=== PATIENT | female | born 1990 | race Caucasian/White ===

== ENCOUNTER 2017-05-27 21:09 | Emergency (ER) | payer BC, OTHER ==
[2017-05-27 21:29] VITALS: O2SAT 100
--- NOTE | 2017-05-27 22:11 | ED.PDOC ---
History of Present Illness - General Chief Complaint: [employer] Problem Stated Complaint: breast pain,post delivery,constipation Time Seen by Provider: 05/27/17 22:03 Source: patient Exam Limitations: no limitations - History of Present Illness Initial Comments: Shagufta Miles 26 y/o female 3 days post had uneventful vaginal delivery stated that both breast is engorged and had been constipated Timing/Duration: other - 2 days Severity: moderate Improving Factors: nothing Worsening Factors: nothing Associated Symptoms: denies symptoms Allergies/Adverse Reactions: Allergies NO KNOWN ALLERGY Allergy (Verified 12/17/12 11:21) Review of Systems - Review of Systems Constitutional: States: no symptoms reported EENTM: States: no symptoms reported Respiratory: States: no symptoms reported Cardiology: States: no symptoms reported Gastrointestinal/Abdominal: States: see HPI Past Medical History (General) - Patient Medical History Hx Asthma: No Hx Diabetes: No Hx Renal Disease: No Surgical History: tonsillectomy - Vaccination History Hx Pneumococcal Vaccination: Yes Immunizations Up to Date: Yes - Social History Hx Substance Use: No - Female History Patient is a Female of Child Bearing Age (10 -59 yrs old): Yes Hx Last Menstrual Period: 08/22/16 - 3 days post Patient : No - Triage Comment ED Triage Comment: wearing arline wrap to breasts, is not breast-feeding child. Taking oral laxatives and softners for constipation Family Medical History - Family History Mother Living Status: Still Living Hx Family;Other: multiple history Physical Exam - Physical Exam General Appearance: Alert, No apparent distress Eye Exam: bilateral normal Ears, Nose, Throat: hearing grossly normal Neck: non-tender, supple Respiratory: lungs clear, normal breath sounds, other - Both breast engorged Cardiovascular/Chest: normal peripheral pulses, regular rate, rhythm, no murmur Gastrointestinal/Abdominal: normal bowel sounds, non tender, soft Rectal Exam: other - no impacted stool Extremity: no pedal edema, no calf tenderness Progress - Progress Progress: 05/27/17 22:22 Vital Signs - 8 hr 05/27/17 21:25 Temperature 98.4 F Pulse Rate [ 76 Right] Respiratory 20 Rate Blood Pressure 130/81 [Right Arm] O2 Sat by Pulse 100 Oximetry Departure - Departure Clinical Impression: Breast engorgement, obstetric, condition, Constipation by delayed colonic transit Time of Disposition: 22:25 Disposition: Discharge to Home or Self Care Condition: Good Departure Forms: ED Discharge - Pt. Copy, Patient Portal Self Enrollment Instructions: DI for Constipation, Constipation, Breast Engorgement ( Alternative Therapy) Referrals: Deshaun Bryan MD [Primary Care Provider] - 1-2 Weeks Additional Instructions: May use (OTC) Miralax and Fleets enema with mineral oil as directed on instruction
[2017-05-27 22:52] VITALS: BP 126/79; TEMP 98.1
== END 2017-05-27 22:52 | disposition home or self-care (01) ==
LOC: ER 21:09
DX: O92.79 Other disorders of lactation (principal); K59.01 Slow transit constipation